=== PATIENT | female | born 1965 | race Caucasian/White ===

== ENCOUNTER → 2021-11-05 14:11 | Outpatient (BNVA) | payer BC, SELFPAY | PROVIDERS: Family Provider Nurse Practitioner Family; PCP Family Medicine; Visit Provider Internal Medicine | DX: Z01.812 Encounter for preprocedural laboratory examination (principal); Z20.822 Contact with and (suspected) exposure to COVID-19 | CPT/HCPCS: 87635 ==

== ENCOUNTER 2021-11-12 06:30 | Day surgery (SDC) | payer BC, SELFPAY ==
[2021-11-06 10:51] VITALS: BMI 25.4
[2021-11-12 06:47] VITALS: BP 126/53; PULSE 68; RESP 18; TEMP 36.1; O2SAT 99
[2021-11-12] MEDS: sodium chloride 0.9% 1,000 ML 30 ML IV (06:53)
--- NOTE | 2021-11-12 07:03 | ANES.PREANE2 ---
Pre-Anesthetic Assessment Pre-Anesthetic Assessment: Height/Weight: Height 1.55 m Weight 61.235 kg Temp Pulse Resp BP Pulse Ox 97 F L 68 18 126/53 99 11/12/21 06:47 11/12/21 06:47 11/12/21 06:47 11/12/21 06:47 11/12/21 06:47 Preop Diagnosis: diarrhea Proposed Procedure: Operation Date: 11/12/21 08:30 Proposed Procedures p EGD 81326 K52.9(Not Applicable) - Jay Gupta MD Familial anesthetic complications: none Was Beta Hyun taken within 24 hours: N/A Was Clonidine taken within 24 hours: N/A Last intake: Intake Last Liquid Date 11/11/21 Last Liquid Time 23:00 Last Solid Date 11/11/21 Last Solid Time 19:00 Social: Social History: No alcohol and No tobacco Comment: medical marijuana for anxiety and pain Exam: Pre-Anes Outpt Exam: alert, oriented x 3, clear to auscultation bilaterally and regular rate & rhythm Airway: MP: 1 Dentition: False Pulmonary: Pulmonary: Sleep apnea (? undiagnosed) GI: GI: GERD Anesthetic Plan: ASA status: 2 Anesthesia: MAC Risk of > 500 ml blood loss (7ml/kg in children): No Meds/Allergies Current Medications: Current Medications Generic Name Dose Route Start Last Admin Trade Name Freq PRN Reason Stop Dose Admin Sodium Chloride 1,000 mls @ 30 ml s/hr 11/12/21 06:45 11/12/21 06:53 Sodium Chloride 0.9% IV 11/13/21 06:44 30 mls/hr .Q24H VIJAY Administration PFSH Anesthesia PFSH: Social History Smoking and tobacco status: former smoker Data Anesthesia Cardiac Studies: No Data to Display
--- NOTE | 2021-11-12 08:44 | P.HP_ITS ---
Same Day Surgery H&P Indication for Procedure/HPI DATE OF PROCEDURE: November 12, 2021 CHIEF COMPLAINT/INDICATIONFOR SURGICAL PROCEDURE: Nausea and vomiting nausea and vomiting PREOP DIAGNOSIS: diarrhea PLANNED PROCEDRUE: Operation Date: 11/12/21 08:30 Proposed Procedures p EGD 43212 K52.9(Not Applicable) - Jay Gupta MD Medications/Allergies* Home Medications Medication Instructions Recorded Confirmed Type clonazepam 1 mg tablet 1 mg PO BID 11/05/21 11/12/21 History diclofenac sodium 75 mg 75 mg PO BID 11/05/21 11/06/21 History tablet,delayed release hydrocortisone acetate 25 mg 25 mg [place] DAILY 11/05/21 11/06/21 History rectal suppository omeprazole 40 mg capsule,delayed 40 mg PO DAILY 11/05/21 11/06/21 History release ondansetron HCl 8 mg tablet 8 mg PO Q8H 11/05/21 11/06/21 History Allergies/Adverse Reactions Allergy/AdvReac Type Severity Reaction Status Date / Time No Known Allergies Allergy Unverified 11/05/21 13:13 Current Medications: Generic Name Dose Route Start Last Admin Trade Name Freq PRN Reason Stop Dose Admin Sodium Chloride 1,000 mls @ 30 mls/hr 11/12/21 06:45 11/12/21 06:53 Sodium Chloride 0.9% IV 11/13/21 06:44 30 mls/hr .Q24H VIJAY Administration Pertinent History/Comorbid Conditions* Social History Smoking and tobacco status: former smoker Pertinent Exam Findings alert, oriented x 3, clear to auscultation bilaterally, regular rate & rhythm, operative site marked and procedure specific exam findings Recommendations Surgery/Procedure today Coding Level of Care Code Acute Medical Technologist Microbiology for Marshal Miller
[2021-11-12 08:56] VITALS: BP 151/82; PULSE 73; RESP 16; TEMP 36.1; O2SAT 97
[2021-11-12 09:21] VITALS: BP 127/72; PULSE 67; RESP 18; O2SAT 98
--- NOTE | 2021-11-12 13:33 | ANE.PACU2 ---
Inpatient post-anesthesia follow up: Airway intact: Yes Vital signs: Temperature 97 F Pulse Rate 67 Respiratory Rate 18 Blood Pressure 127/72 Pulse Oximetry 98 Oxygen Delivery Me thod Room Air Oxygen Flow Rate Fraction of Inspir ed Oxygen Hydration adequate: Yes Nausea and vomiting: No Pain level: 1 Mental status: Baseline
== END 2021-11-12 09:45 | disposition home or self-care (01) ==
PROVIDERS: PCP Family Medicine; Visit Provider Internal Medicine
PROC: 0DJ08ZZ Inspection of Upper Intestinal Tract, Via Natural or Artificial Opening Endoscopic (ICD-10-PCS; CPT 43235; principal; 2021-11-12 08:30)
DX: R19.7 Diarrhea, unspecified (principal); G47.30 Sleep apnea, unspecified; K21.9 Gastro-esophageal reflux disease without esophagitis; Z87.891 Personal history of nicotine dependence
CPT/HCPCS: 43235; 96360; 96361; J2704; J7030

== ENCOUNTER 2021-11-14 13:50 | Outpatient (CLI) | payer BC, SELFPAY ==
--- NOTE | 2021-11-14 15:15 | MR_ITS ---
WS: [id number] MRI/MRCP OF THE ABDOMEN WITHOUT GADOLINIUM ENHANCEMENT TECHNIQUE: Thin and thick slab MRCP, Axial T2, Coronal MRCP, Axial Dual Echo, and Axial 2-D Fiesta imaging was obtained. Coronal 2-D Fiesta imaging. CLINICAL INFORMATION: Post prandial abdominal pain and pale stools COMPARISON: None. FINDINGS: Liver is normal in appearance. Normal portal vein and splenic vein. Normal spleen. Normal GE junction . Stomach appears normal. Normal duodenal C-loop. No intrahepatic biliary ductal dilatation. Normal common bile duct. No visualized choledocholithiasis . Normal tapering of the common bile duct distally. Normal pancreatic duct. Pancreas is normal in efren earance. Prior cholecystectomy. Adrenal glands are normal. No hydronephrosis in either kidney. Normal caliber abdominal aorta. 6 mm l eft renal cyst. MR/MR MRCP [id number] Impression: 1. Prior cholecystectomy.. 2. Normal common bile duct and pancreatic duct. No evidence of choledocholithi asis. 3. No evidence of pancreatic mass or lesion. 4. Liver is normal in appearance. 5. No other significant findings.
== END 2021-11-14 13:51 | disposition home or self-care (01) ==
LOC: RADSHAW 13:59
PROVIDERS: PCP Family Medicine; Visit Provider Internal Medicine
DX: R10.9 Unspecified abdominal pain (principal); Z90.49 Acquired absence of other specified parts of digestive tract
CPT/HCPCS: 74181